=== PATIENT | male | born 1970 | race Caucasian/White ===

== ENCOUNTER 2019-04-27 09:38 | Emergency (ER) | payer BC ==
[2019-04-27] MEDS ORDERED: Sodium Chloride 0.9% 1000 ML 1,000 ML IV STA ×2 (09:42→10:34)
--- NOTE | 2019-04-27 09:56 | ERPHSYRPT ---
- History of Present Illness Time Seen by Provider: 04/27/19 09:53 Source: patient Exam Limitations: no limitations Patient Subjective Stated Complaint: pt here for high blood sugar this morning over 700 he had levamar 20 units, and total of 40 units of humalog this morning at last bs was 279. pt states he was out in heat this yesterday and that this morning he vomited at home but was able to eat breakfast Triage Nursing Assessment: pt alert, resp easy, skin w/d/p. moves all ext well, abst soft, he states he feels better. Physician History: 49-year-old white male states that he saw he had blurry vision this morning checked his blood sugar and was noted at home to have a blood sugar of 700. He states he had some vomiting this morning otherwise no distress. He states he took 20 units of NovoLog at 7:30 another at845. Is now feeling much better. He does state that he felt like he got too hot yesterday out in the sun. Past medical history includes diabetes past surgical history includes left total knee replacement and tonsils Social history positive tobacco use denies alcohol or illicit drug use Timing/Duration: today, improved Severity: moderate Modifying Factors: Improves With: medication (patient took 20 units of NovoLog at 7:30 AM and at 8:45 AM) Associated Symptoms: nausea, vomiting, other (blurry vision this morning felt like when he gets high blood sugars), No abdominal pain, No shortness of breath , No heartburn, No diaphoresis, No cough, No chills, No chest pain, No fever, No headaches, No loss of appetite, No malaise, No rash, No syncope, No seizure, No weakness Allergies/Adverse Reactions: No Known Drug Allergies Allergy (Verified 04/27/19 09:50) Home Medications: Avandia 1 ea DAILY 04/07/12 [History] Simvastatin 1 ea DAILY 04/07/12 [History] Tricor 1 ea DAILY 04/07/12 [History] Hx Tetanus, Diphtheria Vaccination/Date Given: No Hx Influenza Vaccination/Date Given: No Hx Pneumococcal Vaccination/Date Given: Yes Immunizations Up to Date: Yes - Review of Systems Constitutional: No Fever, No Chills Eyes: Vision Changes (blurry vision this morning improved), No Eye Pain, No Eye Redness, No Itchy, No Photophobia, No Tearing Ears, Nose, & Throat: No Symptoms Respiratory: No Cough, No Dyspnea Cardiac: No Chest Pain, No Edema, No Syncope Abdominal/Gastrointestinal: Nausea, Vomiting, No Abdominal Pain, No Diarrhea, No Constipation, No Hematemesis, No Hematochezia, No Melena, No Dysphagia, No Appetite Changes Genitourinary Symptoms: No Dysuria Musculoskeletal: No Back Pain, No Neck Pain Skin: No Rash Neurological: No Symptoms, Gait Changes, Headache, Irritability, Lethargy, Paralysis, Parasthesia, Seizure, Speech Changes, Tics, Tremors, Vertigo, Other, No Dizziness, No Focal Weakness, No Sensory Changes Psychological: No Symptoms Endocrine: No Symptoms All Other Systems: Reviewed and Negative - Past Medical History Pertinent Past Medical History: Yes Cardiac History: High Cholesterol Endocrine Medical History: Diabetes Type I - Past Surgical History Past Surgical History: Yes Other Surgical History: knee replacement - Social History Smoking Status: Current every day smoker Exposure to second hand smoke: Yes Drug Use: none Patient Lives Alone: No - Nursing Vital Signs Nursing Vital Signs: Initial Vital Signs Temperature 100.4 F 04/27/19 09:42 Pulse Rate 121 H 04/27/19 09:42 Respiratory Rate 18 04/27/19 09:42 Blood Pressure 152/90 04/27/19 09:42 O2 Sat by Pulse Oximetry 99 04/27/19 09:42 Pain Scale Pain Intensity 0 - Physical Exam General Appearance: no apparent distress, alert Eye Exam: PERRL/EOMI, eyes nml inspection Ears, Nose, Throat Exam: normal ENT inspection, TMs normal, pharynx normal, moist mucous membranes Neck Exam: normal inspection, non-tender, supple, full range of motion Respiratory Exam: normal breath sounds, lungs clear, No respiratory distress Cardiovascular Exam: regular rate/rhythm, normal heart sounds, normal peripheral pulses, capillary refill <2 sec Gastrointestinal/Abdomen Exam: soft, normal bowel sounds, No tenderness, No mass Back Exam: normal inspection, normal range of motion, No CVA tenderness, No vertebral tenderness Extremity Exam: normal inspection, normal range of motion, pelvis stable Neurologic Exam: alert, oriented x 3, cooperative, resource center teacher II-XII nml as tested, normal mood/affect, nml cerebellar function, nml station & gait, sensation nml, No motor deficits Skin Exam: normal color, warm, dry, No rash Lymphatic Exam: No adenopathy SpO2 Interpretation: normal (99%) SpO2: 99 - Course Nursing assessment & vital signs reviewed: Yes EKG Interpreted by Me: RATE (115 bpm), Sinus Tach, Other (EKG: Sinus tachycardia ,115 beats per minute,S AXISI/QIII pattern, no acute ST or T wave changes normal EKG) Ordered Tests: Active Orders 24 hr Category Date Time Status Accucheck STAT Care 04/27/19 11:17 Active EKG-ER Only STAT Care 04/27/19 09:42 Active IV Insertion STAT Care 04/27/19 09:42 Active Pulse Oximetry (ED) STAT Care 04/27/19 09:42 Active CBC W DIFF Stat Lab 04/27/19 09:45 Completed CMP Stat Lab 04/27/19 09:45 Completed Glucose,Critical Care Urgent Lab 04/27/19 09:42 Completed Manual Differential NC Stat Lab 04/27/19 09:45 Completed UA W/RFX UR CULTURE Stat Lab 04/27/19 10:40 Completed VENOUS BLOOD GAS Urgent Lab 04/27/19 09:42 Completed Medication Summary Generic Name Dose Route Start Last Admin Trade Name Freq PRN Reason Stop Dose Admin Sodium Chloride 1,000 mls @ 999 mls/hr 04/27/19 10:34 04/27/19 10:44 Sodium Chloride 0.9% 1000 Ml IV 04/27/19 11:34 999 mls/hr .Q1H1M STA Administration Discontinued Medications Generic Name Dose Route Start Last Admin Trade Name Freq PRN Reason Stop Dose Admin Sodium Chloride 1,000 mls @ 999 mls/hr 04/27/19 09:42 04/27/19 10:03 Sodium Chloride 0.9% 1000 Ml IV 04/27/19 10:42 999 mls/hr .Q1H1M STA Administration Sodium Chloride Confirm 04/27/19 10:02 Sodium Chloride 0.9% 1000 Ml Administered 04/27/19 10:03 Dose 1,000 mls @ ud .ROUTE .STK-MED ONE Sodium Chloride Confirm 04/27/19 10:41 Sodium Chloride 0.9% 1000 Ml Administered 04/27/19 10:42 Dose 1,000 mls @ ud .ROUTE .STK-MED ONE Lab/Rad Data: Laboratory Result Diagrams 04/27/19 09:45 04/27/19 09:45 Laboratory Results 04/27/19 04/27/19 04/27/19 Range/Units 10:40 09:45 09:45 WBC 12.8 H (4.0-10.5) K/mm3 RBC 4.24 (4.1-5.6) M/mm3 Hgb 12.2 L (12.5-18.0) gm/dl Hct 35.6 L (42-50) % MCV 84.0 (78-100) fl MCH 28.7 (26-32) pg MCHC 34.3 (32-36) g/dl RDW 12.6 (11.5-14.0) % Plt Count 277 (150-450) K/mm3 MPV 8.9 (6-9.5) fl pO2/FiO2 Ratio % VBG pH (7.32-7.42) VBG pCO2 at Pat Temp (42-55) mm/Hg VBG pO2 at Pat Temp (25-40) mm/Hg VBG HCO3 (22-28) meq/L VBG O2 Sat (Sony) (95-100) VBG Base Excess (-2.0-2.0) VBG Hemoglobin VBG Carboxyhemoglobin (0.0-6.9) % T HGB POC Potassium (3.5-5.1) Glucose 189 H (70-110) Sodium 136 L (137-145) mmol/L Potassium 4.0 (3.5-5.1) mmol/L Chloride 100 (98-107) mmol/L Carbon Dioxide 27 (22-30) mmol/L Anion Gap 12.7 (5-15) MEQ/L BUN 6 L (9-20) mg/dL Creatinine 0.60 L (0.66-1.25) mg/dL Estimated GFR > 60.0 ML/MIN Calcium 8.8 (8.4-10.2) mg/dL Total Bilirubin 0.70 (0.2-1.3) mg/dL AST 106 H (17-59) U/L ALT 89 H (0-50) U/L Alkaline Phosphatase 319 H (38-126) U/L Serum Total Protein 7.0 (6.3-8.2) g/dL Albumin 3.3 L (3.5-5.0) g/dL Urine Color YELLOW (YELLOW) Urine Appearance CLEAR (CLEAR) Urine pH 6.0 (5-6) Ur Specific [place] 1.028 (1.005-1.025) Urine Protein NEGATIVE (Negative) Urine Ketones NEGATIVE (NEGATIVE) Urine Blood SMALL (0-5) Karl/ul Urine Nitrite NEGATIVE (NEGATIVE) Urine Bilirubin NEGATIVE (NEGATIVE) Urine Urobilinogen 2 (0-1) mg/dL Ur Leukocyte Esterase NEGATIVE (NEGATIVE) Urine WBC (Auto) 0-2 (0-5) /HPF Urine RBC (Auto) NONE (0-2) /HPF U Epithel Cells (Auto) NONE (FEW) /HPF Urine Bacteria (Auto) NONE (NEGATIVE) /HPF Urine Mucus (Auto) SLIGHT (NEGATIVE) /HPF Urine Culture Reflexed NO (NO) Urine Glucose >=500 (NEGATIVE) mg/dL 04/27/19 Range/Units 09:42 WBC (4.0-10.5) K/mm3 RBC (4.1-5.6) M/mm3 Hgb (12.5-18.0) gm/dl Hct (42-50) % MCV (78-100) fl MCH (26-32) pg MCHC (32-36) g/dl RDW (11.5-14.0) % Plt Count (150-450) K/mm3 MPV (6-9.5) fl pO2/FiO2 Ratio 21.0 % VBG pH 7.37 (7.32-7.42) VBG pCO2 at Pat Temp 51 (42-55) mm/Hg VBG pO2 at Pat Temp 22 L (25-40) mm/Hg VBG HCO3 29.5 H* (22-28) meq/L VBG O2 Sat (Sony) 50.3 L (95-100) VBG Base Excess 3.3 H (-2.0-2.0) VBG Hemoglobin 12.3 VBG Carboxyhemoglobin 2.6 (0.0-6.9) % T HGB POC Potassium 4.0 (3.5-5.1) Glucose 197 H (70-110) Sodium (137-145) mmol/L Potassium (3.5-5.1) mmol/L Chloride (98-107) mmol/L Carbon Dioxide (22-30) mmol/L Anion Gap (5-15) MEQ/L BUN (9-20) mg/dL Creatinine (0.66-1.25) mg/dL Estimated GFR ML/MIN Calcium (8.4-10.2) mg/dL Total Bilirubin (0.2-1.3) mg/dL AST (17-59) U/L ALT (0-50) U/L Alkaline Phosphatase (38-126) U/L Serum Total Protein (6.3-8.2) g/dL Albumin (3.5-5.0) g/dL Urine Color (YELLOW) Urine Appearance (CLEAR) Urine pH (5-6) Ur Specific [place] (1.005-1.025) Urine Protein (Negative) Urine Ketones (NEGATIVE) Urine Blood (0-5) Karl/ul Urine Nitrite (NEGATIVE) Urine Bilirubin (NEGATIVE) Urine Urobilinogen (0-1) mg/dL Ur Leukocyte Esterase (NEGATIVE) Urine WBC (Auto) (0-5) /HPF Urine RBC (Auto) (0-2) /HPF U Epithel Cells (Auto) (FEW) /HPF Urine Bacteria (Auto) (NEGATIVE) /HPF Urine Mucus (Auto) (NEGATIVE) /HPF Urine Culture Reflexed (NO) Urine Glucose (NEGATIVE) mg/dL - Progress Progress: unchanged Progress Note: 04/27/19 11:20 Patient is in no distress at this time. Patient without ketones in his urine. EKG sinus tachycardia 1:15 beats per minute axisSI/QIII pattern, no acute ST or T wave changes. The patient received 2 L of normal saline. Will discharge. - Departure Departure Disposition: Home Clinical Impression: Hyperglycemia Condition: Fair Critical Care Time: No Referrals: GALILEO MUNOZ MD [Primary Care Provider] - Instructions: Hyperglycemia, Adult (DC) Additional Instructions: Return home. Plenty of fluids. Monitor your blood sugars carefully. Followup with your family DrPapo. Return for acute distress or for severe symptoms.
[2019-04-27 09:58] LABS: VBG BASE EXCESS 3.3 (-2.0-2.0); VBG CARBOXYHEMOGLOBIN 2.6 % T HGB (0.0-6.9); VBG HCO3- 29.5 meq/L (22-28); VBG HEMOGLOBIN 12.3; VBG O2 SATURATION 50.3 (95-100); VBG pH 7.37 (7.32-7.42)
[2019-04-27] MEDS ORDERED: Sodium Chloride 0.9% 1000 ML 1,000 ML ONE ×2 (10:02→10:41)
[2019-04-27 10:08] LABS: Hematocrit 35.6 % (42-50); Hemoglobin 12.2 gm/dl (12.5-18.0); Mean Corpuscular Hgb Concent. 34.3 g/dl (32-36); Mean Platelet Volume 8.9 fl (6-9.5); Platelet Count 277 K/mm3 (150-450); Red Blood Count 4.24 M/mm3 (4.1-5.6); Red Cell Distribution Width 12.6 % (11.5-14.0); White Blood Count 12.8 K/mm3 (4.0-10.5)
[2019-04-27 10:13] LABS: Mean Corpuscular Hemoglobin 28.7 pg (26-32)
[2019-04-27 10:16] LABS: ALBUMIN 3.3 g/dL (3.5-5.0); ALKALINE PHOSPHATASE 319 U/L (38-126); ANION GAP 12.7 MEQ/L (5-15); BLOOD UREA NITROGEN 6 mg/dL (9-20); CHLORIDE 100 mmol/L (98-107); Calcium 8.8 mg/dL (8.4-10.2); Carbon Dioxide 27 mmol/L (22-30); Glucose 189 mg/dL (74-106); SGOT/AST 106 U/L (17-59); SGPT/ALT 89 U/L (0-50); SODIUM 136 mmol/L (137-145)
[2019-04-27 11:12] LABS: Appearance CLEAR (CLEAR); Bilirubin NEGATIVE (NEGATIVE); Blood SMALL Ery/ul (0-5); Glucose >=500 mg/dL (NEGATIVE); Ketones NEGATIVE (NEGATIVE); Leukocyte Esterase NEGATIVE (NEGATIVE); Mucus SLIGHT /HPF (NEGATIVE); Nitrite NEGATIVE (NEGATIVE); Protein,Urine Dip NEGATIVE (Negative); Specific Gravity 1.028 (1.005-1.025); Urobilinogen 2 mg/dL (0-1); WBC 0-2 /HPF (0-5)
[2019-04-27 11:26] VITALS: BP 152/97; PULSE 111; O2SAT 100
[2019-04-27 12:37] LABS: ATYPICAL LYMPHS 6 %; BAND 3 % (0.0-2.0); Monocyte 3 % (0.0-12.0); Neutrophils 22 % (36.-66.); Platelet Estimate NORMAL (NORMAL); Total Cells Counted 100
[2019-04-27 12:38] LABS: Lymphocytes 66 % (24-44)
== END 2019-04-27 11:33 | disposition home or self-care (01) ==
LOC: ED 09:38
DX: R73.9 Hyperglycemia, unspecified (principal); Z79.899 Other long term (current) drug therapy; Z79.4 Long term (current) use of insulin
CPT/HCPCS: 36415; 80053; 81001; 82805; 82947; 85025; 93005; 94760; 96360; 96361; 99284

== ENCOUNTER 2021-10-03 20:14 | Emergency (ER) | payer BC, MEDICAID ==
[2021-10-03] MEDS ORDERED: Sodium Chloride 0.9% 1000 ML 1,000 ML ONE ×3 (20:17→21:04)
[2021-10-03] MEDS ORDERED: D50W 50 ml Abboject IV ONE ×2 (20:28→21:10)
[2021-10-03 20:31] LABS: A-aADO2 630; ABG HEMOGLOBIN 10.6; ABG POTASSIUM 3.6 (3.5-5.1); ARTERIAL BLD GAS O2 SATURATION 77.3 % (95-100); ARTERIAL BLD GAS TIDAL VOLUME 500 cc; ARTERIAL BLOOD GAS BASE EXCESS 1.6 (-2.0-2.0); ARTERIAL BLOOD GAS FIO2 100 %; ARTERIAL BLOOD GAS PCO2 33 mmHg (35-45); ARTERIAL BLOOD GAS PO2 42 mmHg (75-100); ARTERIAL BLOOD GAS VENT MODE A/C; ARTERIAL BLOOD GAS pH 7.48 (7.35-7.45); CARBOXYHEMOGLOBIN 1.3 % THgb (0.0-6.9); HCO3- 24.6 (22-28); HGB O2 SAT 75.9 g/dF (94-100); Methhemoglobin 0.4 % (1.4-1.5)
[2021-10-03] MEDS ORDERED: Zosyn INJ 4.5 GM in Sodium Chloride 100ML MINI-BAG PLUS 100 ML IV ONE (20:31)
[2021-10-03 20:32] LABS: ABG SITE RIGHT RADIAL; ALLEN TEST OK? YES
[2021-10-03 20:32] LABS: Hematocrit 33.1 % (42-50); Mean Cell Volume 79.8 fl (78-100); Mean Corpuscular Hemoglobin 26.5 pg (26-32); Mean Corpuscular Hgb Concent. 33.2 g/dl (32-36); Mean Platelet Volume 10.4 fl (7.5-11.0); Platelet Count 283 K/mm3 (150-450); Red Blood Count 4.15 M/mm3 (4.1-5.6); Red Cell Distribution Width 13.6 % (11.5-14.0); White Blood Count 12.6 K/mm3 (4.0-10.5)
[2021-10-03] MEDS ORDERED: Sodium Chloride 100ML MINI-BAG PLUS 100 ML IV ONE (20:33)
[2021-10-03] MEDS ORDERED: Zosyn INJ IV ONE (20:33)
[2021-10-03 20:37] LABS: A-aADO2 290; ABG POTASSIUM 3.4 (3.5-5.1); ARTERIAL BLD GAS TIDAL VOLUME 500 cc; ARTERIAL BLOOD GAS BASE EXCESS -1.5 (-2.0-2.0); ARTERIAL BLOOD GAS FIO2 100 %; ARTERIAL BLOOD GAS PCO2 29 mmHg (35-45); ARTERIAL BLOOD GAS PO2 387 mmHg (75-100); ARTERIAL BLOOD GAS VENT MODE A/C; ARTERIAL BLOOD GAS pH 7.47 (7.35-7.45); HCO3- 21.1 (22-28); HGB O2 SAT 98.2 g/dF (94-100); Methhemoglobin 0.9 % (1.4-1.5)
[2021-10-03 20:38] LABS: ABG SITE RIGHT RADIAL; ALLEN TEST OK? YES
[2021-10-03 20:41] LABS: Appearance SLIGHTLY CLOUDY (CLEAR); Bilirubin NEGATIVE (NEGATIVE); Blood NEGATIVE Ery/ul (0-5); Glucose >=500 mg/dL (NEGATIVE); Hyaline Casts 0-2 /LPF (0-2); Ketones TRACE (NEGATIVE); Leukocyte Esterase NEGATIVE (NEGATIVE); Mucus SLIGHT /HPF (NEGATIVE); Nitrite NEGATIVE (NEGATIVE); Protein,Urine Dip 30 (Negative); RBC 0-2 /HPF (0-2); Specific Gravity 1.018 (1.005-1.025); Urobilinogen NEGATIVE mg/dL (0-1); WBC 0-2 /HPF (0-5)
[2021-10-03 20:46] LABS: ALBUMIN 2.6 g/dL (3.5-5.0); ALKALINE PHOSPHATASE 115 U/L (38-126); ANION GAP 12.6 MEQ/L (5-15); BLOOD UREA NITROGEN 43 mg/dL (9-20); CHLORIDE 92 mmol/L (98-107); Calcium 8.7 mg/dL (8.4-10.2); Carbon Dioxide 25 mmol/L (22-30); Creatinine 1 1.32 mg/dL (0.66-1.25); EST GLOMERULAR FILTRATION RATE > 60.0 ML/MIN; Glucose 67 mg/dL (74-106); Potassium 3.9 mmol/L (3.5-5.1); SGOT/AST 37 U/L (17-59); SGPT/ALT 16 U/L (0-50); SODIUM 126 mmol/L (137-145); Total Protein 5.6 g/dL (6.3-8.2)
[2021-10-03 21:03] LABS: INR 1.34 (0.8-3.0); PROTIME 15.8 SECONDS (9.4-12.5)
[2021-10-03 21:06] LABS: PTT 25.7 SECONDS (25.1-36.5)
[2021-10-03] MEDS ORDERED: VANCOMYCIN 1 GRAM/200 ML BAG 1 GM/200 ML PIGGYBACK IV ONE ×2 (21:08)
[2021-10-03] MEDS ORDERED: Sodium Chloride 0.9% 1000 ML 1,000 ML IV STA ×3 (21:09→21:10)
[2021-10-03] MEDS ORDERED: LEVOPHED 4 MG/4 ML 4,000 MCG in Dextrose 5%/Water IV Soln. 500 ML 500 ML IV PRN (21:11)
[2021-10-03 21:38] VITALS: O2SAT 100
--- NOTE | 2021-10-03 21:38 | ERPHSYRPT ---
- History of Present Illness Source: EMS Exam Limitations: clinical condition Patient Subjective Stated Complaint: EMS states pt was unresponsive with agonal breathing at time of arrival Triage Nursing Assessment: pt came into the er via ambulance; pt is unresponsive on the ventilator; EMS states pt was RSI in the field; pt received 20mg of etomidate, 90mg of rocuronium, 100mcg of fentanyl, 5mg versed in the field; tube in place at time of arrival; clear lung sounds in all lobes; no crepitus present; pt is pale cool to the touch; f/c placed at time of arrival; urine yellow and clear; hypoactive bowel sounds in all quads; strong kellen radial pulses; strong kellen pedal pulses; distant apical pulse; ulcer present to left foot; dorsal left foot has ulcer that is wheeping; planter of the left foot ulcer present measuring 2 mm x 1.6 mm and 0.9 mm; pt has calus to left heel; pupils 2 mm and nonresponsive; hypotensive 53/36; febrile 100.4; blood glucose in field was 429, blood glucose at time of arrival was 79; pt was given 1 amp of D5W; pt received 1L bolus in route Physician History: 51 yo wm arrived per EMS intubated. Pt obtunded w agonal respirations on floor when EMS arrived. Pt given 20mg Etomidate/90mg Rocuronium for RSI and post i ntubation given 100umg IV Fentanyl/5mg IV Versed for sedation post-intubation. Pt arrived to ER unresponsive/hypotensive/sats in 80's. IV access R antecubital upon arrival and 18G IV started R forearm per ER nursing. Pt connected to ventilator AC500/R25/100% O2/Peep4. CXR done w ETT in R mainstem so pulled out 2cm w increase in sats. Rojo placed per nursing wo comps and with good urine output. Pupils unresponsive and no purposeful movement noted. Pt assumed septic due to obvious L foot infection. Hypotension treated w NS bolus 1L x3 and Levophed drip. Timing/Duration: other (Unknown) Allergies/Adverse Reactions: No Known Drug Allergies Allergy (Verified 10/03/21 20:21) Home Medications: Aspirin EC 81 mg [Ecotrin 81 mg] 81 mg PO DAILY 10/03/21 [History] Atorvastatin Calcium [Lipitor] 80 mg PO DAILY 10/03/21 [History] Escitalopram Oxalate [Lexapro] 5 mg PO DAILY 10/03/21 [History] Gabapentin 300 mg [Neurontin 300 mg] 300 mg PO TID 10/03/21 [History] Insulin Aspart 25 unit SQ ACHS 10/03/21 [History] Insulin Detemir [Levemir] 25 unit SQ BID 10/03/21 [History] Insulin Lispro [Humalog] 1 unit SQ UD 10/03/21 [History] Metoprolol Succinate 25 mg Xl* [Toprol-Xl 25MG Tablets] 25 mg PO BID 10/03/21 [History] Tramadol HCl 50 mg [Ultram 50 mg] 50 mg PO Q6H PRN PRN 10/03/21 [History] lisinopriL [Lisinopril] 20 mg PO DAILY 10/03/21 [History] Hx Tetanus, Diphtheria Vaccination/Date Given: No Hx Influenza Vaccination/Date Given: No Hx Pneumococcal Vaccination/Date Given: Yes Travel Risk - International Travel Have you traveled outside of the country in past 3 weeks: No - Coronavirus Screening Are you exhibiting any of the following symptoms?: No Close contact with a COVID-19 positive Pt in past 14-21 Days: No - Vaccine Status Have you recieved a Covid-19 vaccination: No (unknown) Obstetrics Gyn: Unknown - Vaccination Dates Dates if Unknown: unknown - Review of Systems All Other Systems: Unable due to condition - Past Medical History Pertinent Past Medical History: Yes Cardiac History: High Cholesterol, Hypertension, Myocardial Infarction ([place]) Endocrine Medical History: Diabetes Type I - Past Surgical History Past Surgical History: Yes Other Surgical History: knee replacement - Social History Smoking Status: Current every day smoker Exposure to second hand smoke: Yes Drug Use: none Patient Lives Alone: No Significant Family History: no pertinent family hx - Nursing Vital Signs Nursing Vital Signs: Initial Vital Signs Temperature 100.4 F 10/03/21 20:14 Pulse Rate 90 10/03/21 20:14 Respiratory Rate 24 10/03/21 20:14 Blood Pressure 53/36 10/03/21 20:14 O2 Sat by Pulse Oximetry 86 L 10/03/21 20:14 Pain Scale Pain Intensity 0 Hypoxic/Hypotensive/Febrile - Physical Exam General Appearance: severe distress (Intubated/Hypotensive/Hypoxic) Eye Exam: other (Pupils unresponsive B) Neck Exam: normal inspection Respiratory Exam: other (Intubated/occ wheeze B) Cardiovascular Exam: tachycardia, No murmur Gastrointestinal/Abdomen Exam: soft, normal bowel sounds Male Genitalia Exam: normal genitalia Extremity Exam: other (L foot w diabetic foot ulcer/edematous/markedly erythematous) Neurologic Exam: other (Pt sedated wo purposeful movement) Skin Exam: No rash Lymphatic Exam: No adenopathy SpO2 Interpretation: normal (Pt intubated/sats normalized when tube pulled back) SpO2: 100 O2 Delivery: Ventilator - Course Nursing assessment & vital signs reviewed: Yes EKG Interpreted by Me: RATE (Sinus tach/Rate 104/Old anterior [place]/Old inferior [place]/Prolonged QTc/Nonspecif ST-Twave changes) - CT Exams Head CT Interpretation: Discussed w/radiologist (L anterior parietal ischemia vs infarct wo hemorrhage or mass) Chest CT Interpretation: Discussed w/radiologist (RLL PE) Ordered Tests: Active Orders 24 hr Category Date Time Status Piece Worker STAT Care 10/03/21 20:16 Completed Catheter-[place] Rojo STAT Care 10/03/21 20:16 Completed EKG-ER Only STAT Care 10/03/21 20:16 Completed IV Insertion STAT Care 10/03/21 20:16 Completed Pulse Oximetry (ED) STAT Care 10/03/21 20:16 Completed CHEST 1 VIEW (PORTABLE) Stat Exams 10/03/21 20:16 Taken CHEST WITH CONTRAST [CT] Stat Exams 10/03/21 21:02 Taken HEAD WITHOUT CONTRAST [CT] Stat Exams 10/03/21 20:34 Taken ABG [ARTERIAL BLOOD GASES] Stat Lab 10/03/21 20:34 Completed ABG [ARTERIAL BLOOD GASES] Urgent Lab 10/03/21 20:30 Completed BLOOD CULTURE Stat Lab 10/03/21 20:21 Received CBC W DIFF Stat Lab 10/03/21 20:16 Completed CMP Stat Lab 10/03/21 20:16 Completed CULTURE,URINE Stat Lab 10/03/21 20:32 Received CULTURE,WOUND Stat Lab 10/03/21 21:53 Ordered CULTURE,WOUND Stat Lab 10/03/21 22:10 Ordered Lactic Acid Stat Lab 10/03/21 20:16 Completed Manual Differential NC Stat Lab 10/03/21 20:16 Completed POCT GLUCOSE Stat Lab 10/03/21 21:07 Completed PROTIME WITH INR Stat Lab 10/03/21 20:16 Completed PTT Stat Lab 10/03/21 20:16 Completed TROPONIN Q3H Lab 10/03/21 20:30 Completed UA W/RFX UR CULTURE Stat Lab 10/03/21 20:32 Completed Urine Triage Profile Stat Lab 10/03/21 22:03 Completed Medication Summary Discontinued Medications Generic Name Dose Route Start Last Admin Trade Name Anusha PRN Reason Stop Dose Admin Dextrose Confirm 10/03/21 20:28 Dextrose 50%-Water 50 Ml Abboject Administered 10/03/21 20:29 Dose 50 ml IV .STK-MED ONE Dextrose 50 ml 10/03/21 21:10 10/03/21 20:30 Dextrose 50%-Water 50 Ml Abboject IV 10/03/21 21:11 50 ml STAT ONE Administration Enoxaparin Sodium 75 mg 10/03/21 22:19 10/03/21 22:42 Enoxaparin Sodium 80 Mg/0.8 Ml Syringe SQ 10/03/21 22:20 Not Given 1XONLY ONE Fentanyl Citrate 50 mcg 10/03/21 21:59 10/03/21 22:05 Fentanyl Citrate 100 Mcg/2 Ml* Vial IV 10/03/21 22:00 50 mcg STAT ONE Administration Fentanyl Citrate Confirm 10/03/21 22:04 Fentanyl Citrate 100 Mcg/2 Ml* Vial Administered 10/03/21 22:05 Dose 100 mcg .ROUTE .STK-MED ONE Fentanyl Citrate 50 mcg 10/03/21 23:05 10/03/21 23:07 Fentanyl Citrate 100 Mcg/2 Ml* Vial IV 10/03/21 23:06 50 mcg STAT ONE Administration Fentanyl Citrate Confirm 10/03/21 23:06 Fentanyl Citrate 100 Mcg/2 Ml* Vial Administered 10/03/21 23:07 Dose 100 mcg .ROUTE .STK-MED ONE Heparin Sodium (Beef Lung) Confirm 10/03/21 22:37 Heparin 5000 Unit/0.5 Ml Syringe Administered 10/03/21 22:38 Dose 5,000 unit .ROUTE .STK-MED ONE Heparin Sodium (Beef Lung) 5,000 unit 10/03/21 22:43 10/03/21 22:46 Heparin 5000 Unit/0.5 Ml Syringe IV 10/03/21 22:44 5,000 unit STAT ONE Administration Sodium Chloride Confirm 10/03/21 20:17 Sodium Chloride 0.9% 1000 Ml Administered 10/03/21 20:18 Dose 1,000 mls @ ud .ROUTE .STK-MED ONE Sodium Chloride Confirm 10/03/21 20:19 Sodium Chloride 0.9% 1000 Ml Administered 10/03/21 20:20 Dose 1,000 mls @ ud .ROUTE .STK-MED ONE Piperacillin Sod/Tazobactam 100 mls @ 200 mls/hr 10/03/21 20:31 10/03/21 20:40 Sod 4.5 gm/ Sodium Chloride IV 10/03/21 21:00 200 mls/hr STAT ONE Administration Sodium Chloride Confirm 10/03/21 20:33 Sodium Chloride 100ml Mini-Bag Plus Administered 10/03/21 20:34 Dose 100 mls @ ud IV .STK-MED ONE Sodium Chloride Confirm 10/03/21 21:04 Sodium Chloride 0.9% 1000 Ml Administered 10/03/21 21:05 Dose 1,000 mls @ ud .ROUTE .STK-MED ONE Vancomycin HCl 1 gm in 200 mls @ 125 mls/hr 10/03/21 21:08 10/03/21 21:10 Vancomycin 1 Gram/200 Ml Bag IV 10/03/21 22:43 125 mls/hr STAT ONE 125 mls/hr Administration Sodium Chloride 1,000 mls @ 999 mls/hr 10/03/21 21:09 10/03/21 22:08 Sodium Chloride 0.9% 1000 Ml IV 10/03/21 22:09 Infused .Q1H1M STA Infusion Sodium Chloride 1,000 mls @ 999 mls/hr 10/03/21 21:10 10/03/21 21:42 Sodium Chloride 0.9% 1000 Ml IV 10/03/21 22:10 Infused .Q1H1M STA Infusion Sodium Chloride 1,000 mls @ 999 mls/hr 10/03/21 21:10 10/03/21 22:07 Sodium Chloride 0.9% 1000 Ml IV 10/03/21 22:10 Infused .Q1H1M STA Infusion Vancomycin HCl Confirm 10/03/21 21:08 Vancomycin 1 Gram/200 Ml Bag Administered 10/03/21 21:09 Dose 1 gm in 200 mls @ ud IV .STK-MED ONE Norepinephrine 4,000 mcg/ 504 mls @ 37.8 mls/hr 10/03/21 21:11 10/03/21 22:03 Dextrose IV 11/02/21 21:10 5 mcg/min .[id number] PRN 37.8 mls/hr SEVERE HYPOTENSION Titration Protocol 5 MCG/MIN Heparin Sodium/Dextrose Confirm 10/03/21 22:37 Heparin 25,000 Units/D5w 250ml Premix Administered 10/03/21 22:38 Dose 25,000 units in 250 mls @ ud IV .STK-MED ONE Heparin Sodium/Dextrose 25,000 units in 250 mls @ 10 mls/hr 10/03/21 23:00 10/03/21 22:45 Heparin 25,000 Units/D5w 250ml Premix IV 11/02/21 22:59 10 mls/hr .Q24H CLEMENTE 10 mls/hr Administration Lorazepam 1 mg 10/03/21 23:06 10/03/21 23:07 Lorazepam 2 Mg/1 Ml 2 Mg Vial IV 10/03/21 23:07 1 mg STAT ONE Administration Lorazepam Confirm 10/03/21 23:06 Lorazepam 2 Mg/1 Ml 2 Mg Vial Administered 10/03/21 23:07 Dose 2 mg .ROUTE .STK-MED ONE Piperacillin Sod/Tazobactam Sod Confirm 10/03/21 20:33 Piperacillin/Tazobactam Sodium 4.5 Gm Vial Administered 10/03/21 20:34 Dose 4.5 gm IV .STK-MED ONE Lab/Rad Data: Laboratory Result Diagrams 10/03/21 20:16 10/03/21 20:16 Laboratory Results 10/03/21 10/03/21 10/03/21 Range/Units 22:03 22:00 21:07 WBC (4.0-10.5) K/mm3 RBC (4.1-5.6) M/mm3 Hgb (12.5-18.0) gm/dl Hct (42-50) % MCV (78-100) fl MCH (26-32) pg MCHC (32-36) g/dl RDW (11.5-14.0) % Plt Count (150-450) K/mm3 MPV (7.5-11.0) fl PT (9.4-12.5) SECONDS INR (0.8-3.0) APTT (25.1-36.5) SECONDS Puncture Site pCO2 (35-45) mmHg pO2 (75-100) mmHg Base Excess (-2.0-2.0) O2 Saturation (94-100) g/dF ABG pH (7.35-7.45) ABG HCO3 (22-28) ABG O2 Sat (Measured) (95-100) % Aric Test A-a Gradient a/A Ratio Hemoglobin Carboxyhemoglobin (0.0-6.9) % THgb Methemoglobin (1.4-1.5) % Temperature C POC O2 Flow Rate % Vent Mode Tidal Volume cc PEEP cmH2O Sodium (137-145) mmol/L Potassium (3.5-5.1) mmol/L Chloride (98-107) mmol/L Carbon Dioxide (22-30) mmol/L Anion Gap (5-15) MEQ/L BUN (9-20) mg/dL Creatinine (0.66-1.25) mg/dL Estimated GFR ML/MIN Glucose (74-106) mg/dL POC Glucometer 169 H (74 to 106) mg/dL Lactic Acid (0.4-2.0) Calcium (8.4-10.2) mg/dL Total Bilirubin (0.2-1.3) mg/dL AST (17-59) U/L ALT (0-50) U/L Alkaline Phosphatase (38-126) U/L Troponin I (0.000-0.034) ng/mL Serum Total Protein (6.3-8.2) g/dL Albumin (3.5-5.0) g/dL Urine Color (YELLOW) Urine Appearance (CLEAR) Urine pH (5-6) Ur Specific [place] (1.005-1.025) Urine Protein (Negative) Urine Ketones (NEGATIVE) Urine Blood (0-5) Karl/ul Urine Nitrite (NEGATIVE) Urine Bilirubin (NEGATIVE) Urine Urobilinogen (0-1) mg/dL Ur Leukocyte Esterase (NEGATIVE) Urine WBC (Auto) (0-5) /HPF Urine RBC (Auto) (0-2) /HPF U Hyaline Cast (Auto) (0-2) /LPF Urine Mucus (Auto) (NEGATIVE) /HPF Urine Culture Reflexed (NO) Urine Glucose (NEGATIVE) mg/dL Urine Opiates Level POSITIVE (NEGATIVE) Ur Methadone NEGATIVE (NEGATIVE) Urine Barbiturates NEGATIVE (NEGATIVE) Ur Phencyclidine (PCP) NEGATIVE (NEGATIVE) Urine Amphetamine NEGATIVE (NEGATIVE) U Benzodiazepine Level NEGATIVE (NEGATIVE) Urine Cocaine NEGATIVE (NEGATIVE) Urine Marijuana (THC) NEGATIVE (NEGATIVE) Influenza Type A Ag NEGATIVE (NEGATIVE) Influenza Type B Ag NEGATIVE (NEGATIVE) RSV (PCR) NEGATIVE (Negative) SARS-CoV-2 (PCR) NEGATIVE (NEGATIVE) 10/03/21 10/03/21 10/03/21 Range/Units 20:34 20:30 20:30 WBC (4.0-10.5) K/mm3 RBC (4.1-5.6) M/mm3 Hgb (12.5-18.0) gm/dl Hct (42-50) % MCV (78-100) fl MCH (26-32) pg MCHC (32-36) g/dl RDW (11.5-14.0) % Plt Count (150-450) K/mm3 MPV (7.5-11.0) fl PT (9.4-12.5) SECONDS INR (0.8-3.0) APTT (25.1-36.5) SECONDS Puncture Site RIGHT RADIAL RIGHT RADIAL pCO2 29 L 33 L (35-45) mmHg pO2 387 H* 42 L* (75-100) mmHg Base Excess -1.5 1.6 (-2.0-2.0) O2 Saturation 98.2 75.9 L (94-100) g/dF ABG pH 7.47 H 7.48 H (7.35-7.45) ABG HCO3 21.1 L 24.6 (22-28) ABG O2 Sat (Measured) 100.0 77.3 L (95-100) % Aric Test YES YES A-a Gradient 290 630 a/A Ratio 0.57 0.06 Hemoglobin 10.0 10.6 Carboxyhemoglobin 1.0 1.3 (0.0-6.9) % THgb Methemoglobin 0.9 L 0.4 L (1.4-1.5) % Temperature 37.0 37.0 C POC O2 Flow Rate 100 100 % Vent Mode A/C A/C Tidal Volume 500 500 cc PEEP 10.0 10.0 cmH2O Sodium (137-145) mmol/L Potassium 3.4 L 3.6 (3.5-5.1) mmol/L Chloride (98-107) mmol/L Carbon Dioxide (22-30) mmol/L Anion Gap (5-15) MEQ/L BUN (9-20) mg/dL Creatinine (0.66-1.25) mg/dL Estimated GFR ML/MIN Glucose (74-106) mg/dL POC Glucometer (74 to 106) mg/dL Lactic Acid (0.4-2.0) Calcium (8.4-10.2) mg/dL Total Bilirubin (0.2-1.3) mg/dL AST (17-59) U/L ALT (0-50) U/L Alkaline Phosphatase (38-126) U/L Troponin I 0.017 (0.000-0.034) ng/mL Serum Total Protein (6.3-8.2) g/dL Albumin (3.5-5.0) g/dL Urine Color (YELLOW) Urine Appearance (CLEAR) Urine pH (5-6) Ur Specific [place] (1.005-1.025) Urine Protein (Negative) Urine Ketones (NEGATIVE) Urine Blood (0-5) Karl/ul Urine Nitrite (NEGATIVE) Urine Bilirubin (NEGATIVE) Urine Urobilinogen (0-1) mg/dL Ur Leukocyte Esterase (NEGATIVE) Urine WBC (Auto) (0-5) /HPF Urine RBC (Auto) (0-2) /HPF U Hyaline Cast (Auto) (0-2) /LPF Urine Mucus (Auto) (NEGATIVE) /HPF Urine Culture Reflexed (NO) Urine Glucose (NEGATIVE) mg/dL Urine Opiates Level (NEGATIVE) Ur Methadone (NEGATIVE) Urine Barbiturates (NEGATIVE) Ur Phencyclidine (PCP) (NEGATIVE) Urine Amphetamine (NEGATIVE) U Benzodiazepine Level (NEGATIVE) Urine Cocaine (NEGATIVE) Urine Marijuana (THC) (NEGATIVE) Influenza Type A Ag (NEGATIVE) Influenza Type B Ag (NEGATIVE) RSV (PCR) (Negative) SARS-CoV-2 (PCR) (NEGATIVE) 10/03/21 10/03/21 10/03/21 Range/Units 20:16 20:16 20:16 WBC (4.0-10.5) K/mm3 RBC (4.1-5.6) M/mm3 Hgb (12.5-18.0) gm/dl Hct (42-50) % MCV (78-100) fl MCH (26-32) pg MCHC (32-36) g/dl RDW (11.5-14.0) % Plt Count (150-450) K/mm3 MPV (7.5-11.0) fl PT 15.8 H (9.4-12.5) SECONDS INR 1.34 (0.8-3.0) APTT 25.7 (25.1-36.5) SECONDS Puncture Site pCO2 (35-45) mmHg pO2 (75-100) mmHg Base Excess (-2.0-2.0) O2 Saturation (94-100) g/dF ABG pH (7.35-7.45) ABG HCO3 (22-28) ABG O2 Sat (Measured) (95-100) % Aric Test A-a Gradient a/A Ratio Hemoglobin Carboxyhemoglobin (0.0-6.9) % THgb Methemoglobin (1.4-1.5) % Temperature C POC O2 Flow Rate % Vent Mode Tidal Volume cc PEEP cmH2O Sodium 126 L (137-145) mmol/L Potassium 3.9 (3.5-5.1) mmol/L Chloride 92 L (98-107) mmol/L Carbon Dioxide 25 (22-30) mmol/L Anion Gap 12.6 (5-15) MEQ/L BUN 43 H (9-20) mg/dL Creatinine 1.32 H (0.66-1.25) mg/dL Estimated GFR > 60.0 ML/MIN Glucose 67 L (74-106) mg/dL POC Glucometer (74 to 106) mg/dL Lactic Acid 1.9 (0.4-2.0) Calcium 8.7 (8.4-10.2) mg/dL Total Bilirubin 0.60 (0.2-1.3) mg/dL AST 37 (17-59) U/L ALT 16 (0-50) U/L Alkaline Phosphatase 115 (38-126) U/L Troponin I (0.000-0.034) ng/mL Serum Total Protein 5.6 L (6.3-8.2) g/dL Albumin 2.6 L (3.5-5.0) g/dL Urine Color (YELLOW) Urine Appearance (CLEAR) Urine pH (5-6) Ur Specific [place] (1.005-1.025) Urine Protein (Negative) Urine Ketones (NEGATIVE) Urine Blood (0-5) Karl/ul Urine Nitrite (NEGATIVE) Urine Bilirubin (NEGATIVE) Urine Urobilinogen (0-1) mg/dL Ur Leukocyte Esterase (NEGATIVE) Urine WBC (Auto) (0-5) /HPF Urine RBC (Auto) (0-2) /HPF U Hyaline Cast (Auto) (0-2) /LPF Urine Mucus (Auto) (NEGATIVE) /HPF Urine Culture Reflexed (NO) Urine Glucose (NEGATIVE) mg/dL Urine Opiates Level (NEGATIVE) Ur Methadone (NEGATIVE) Urine Barbiturates (NEGATIVE) Ur Phencyclidine (PCP) (NEGATIVE) Urine Amphetamine (NEGATIVE) U Benzodiazepine Level (NEGATIVE) Urine Cocaine (NEGATIVE) Urine Marijuana (THC) (NEGATIVE) Influenza Type A Ag (NEGATIVE) Influenza Type B Ag (NEGATIVE) RSV (PCR) (Negative) SARS-CoV-2 (PCR) (NEGATIVE) 10/03/21 10/03/21 Range/Units 20:16 20:14 WBC 12.6 H (4.0-10.5) K/mm3 RBC 4.15 (4.1-5.6) M/mm3 Hgb 11.0 L (12.5-18.0) gm/dl Hct 33.1 L (42-50) % MCV 79.8 (78-100) fl MCH 26.5 (26-32) pg MCHC 33.2 (32-36) g/dl RDW 13.6 (11.5-14.0) % Plt Count 283 (150-450) K/mm3 MPV 10.4 (7.5-11.0) fl PT (9.4-12.5) SECONDS INR (0.8-3.0) APTT (25.1-36.5) SECONDS Puncture Site pCO2 (35-45) mmHg pO2 (75-100) mmHg Base Excess (-2.0-2.0) O2 Saturation (94-100) g/dF ABG pH (7.35-7.45) ABG HCO3 (22-28) ABG O2 Sat (Measured) (95-100) % Aric Test A-a Gradient a/A Ratio Hemoglobin Carboxyhemoglobin (0.0-6.9) % THgb Methemoglobin (1.4-1.5) % Temperature C POC O2 Flow Rate % Vent Mode Tidal Volume cc PEEP cmH2O Sodium (137-145) mmol/L Potassium (3.5-5.1) mmol/L Chloride (98-107) mmol/L Carbon Dioxide (22-30) mmol/L Anion Gap (5-15) MEQ/L BUN (9-20) mg/dL Creatinine (0.66-1.25) mg/dL Estimated GFR ML/MIN Glucose (74-106) mg/dL POC Glucometer (74 to 106) mg/dL Lactic Acid (0.4-2.0) Calcium (8.4-10.2) mg/dL Total Bilirubin (0.2-1.3) mg/dL AST (17-59) U/L ALT (0-50) U/L Alkaline Phosphatase (38-126) U/L Troponin I (0.000-0.034) ng/mL Serum Total Protein (6.3-8.2) g/dL Albumin (3.5-5.0) g/dL Urine Color YELLOW (YELLOW) Urine Appearance SLIGHTLY CLOUDY (CLEAR) Urine pH 5.0 (5-6) Ur Specific [place] 1.018 (1.005-1.025) Urine Protein 30 (Negative) Urine Ketones TRACE (NEGATIVE) Urine Blood NEGATIVE (0-5) Karl/ul Urine Nitrite NEGATIVE (NEGATIVE) Urine Bilirubin NEGATIVE (NEGATIVE) Urine Urobilinogen NEGATIVE (0-1) mg/dL Ur Leukocyte Esterase NEGATIVE (NEGATIVE) Urine WBC (Auto) 0-2 (0-5) /HPF Urine RBC (Auto) 0-2 (0-2) /HPF U Hyaline Cast (Auto) 0-2 (0-2) /LPF Urine Mucus (Auto) SLIGHT (NEGATIVE) /HPF Urine Culture Reflexed ORDERED SEPARATELY (NO) Urine Glucose >=500 (NEGATIVE) mg/dL Urine Opiates Level (NEGATIVE) Ur Methadone (NEGATIVE) Urine Barbiturates (NEGATIVE) Ur Phencyclidine (PCP) (NEGATIVE) Urine Amphetamine (NEGATIVE) U Benzodiazepine Level (NEGATIVE) Urine Cocaine (NEGATIVE) Urine Marijuana (THC) (NEGATIVE) Influenza Type A Ag (NEGATIVE) Influenza Type B Ag (NEGATIVE) RSV (PCR) (Negative) SARS-CoV-2 (PCR) (NEGATIVE) - Progress Progress: improved Progress Note: 10/03/21 22:[address] [facility] 3000ML Levaphed drip started at 5ug/mn and titrated to effect Zosyn 4.5gm IV Vancomycin 1gm IV Heparin 5000u bolus/1000u/hr Dr. Barnett called and stated that pt had nonoccluding RLL PE and L anterior parietal infarct vs ischemia wo hemorrhage or mass effect. Stated that most likely old. - Departure Departure Disposition: Transfer Clinical Impression: Sepsis, Pulmonary embolus, right, Diabetic foot infection, Respiratory failure Condition: Stable Critical Care Time: Yes Critical Care Time(excluding separately billable procedures): Critical 75-104 mins Referrals: GALILEO MUNOZ MD [Primary Care Provider] - Follow up/PCP as directed
[2021-10-03] MEDS ORDERED: SUBLIMAZE 100 MCG/2 ML IV ONE ×2 (21:59→23:05)
[2021-10-03] MEDS ORDERED: SUBLIMAZE 100 MCG/2 ML ONE ×2 (22:04→23:06)
[2021-10-03] MEDS ORDERED: ENOXAPARIN SODIUM SQ ONE (22:19)
[2021-10-03] MEDS ORDERED: Heparin 5000 UNITS/0.5 ML (HIGH RISK MED) ONE (22:37)
[2021-10-03] MEDS ORDERED: Heparin 25,000 units/D5W 250ML PREMIX 25,000 UNITS/250 ML BAG IV ONE (22:37)
[2021-10-03 22:40] LABS: INFLUENZA A NEGATIVE (NEGATIVE); INFLUENZA B NEGATIVE (NEGATIVE); RESPIRATORY SYNCTIAL VIRUS NEGATIVE (Negative); SARS-CoV-2 Xpert Express NEGATIVE (NEGATIVE)
[2021-10-03] MEDS ORDERED: Heparin 5000 UNITS/0.5 ML (HIGH RISK MED) IV ONE (22:43)
[2021-10-03 22:45] LABS: Amphetamine,Urine NEGATIVE (NEGATIVE); Barbiturate,Urine NEGATIVE (NEGATIVE); Benzodiazepine,Urine NEGATIVE (NEGATIVE); Cocaine,Urine NEGATIVE (NEGATIVE); Methadone,Urine NEGATIVE (NEGATIVE); Opiate,Urine POSITIVE (NEGATIVE); PCP,Urine NEGATIVE (NEGATIVE); THC,Urine NEGATIVE (NEGATIVE)
[2021-10-03] MEDS ORDERED: Heparin 25,000 units/D5W 250ML PREMIX 25,000 UNITS/250 ML BAG IV SCH (23:00)
[2021-10-03 23:04] VITALS: BP 97/66; PULSE 65
[2021-10-03] MEDS ORDERED: Ativan 2 MG/1 ML VIAL IV ONE (23:06)
[2021-10-03] MEDS ORDERED: Ativan 2 MG/1 ML VIAL ONE (23:06)
[2021-10-04 01:02] LABS: BAND 1 % (0.0-2.0); Burr Cells 1+; Hypochromia 1+; Lymphocytes 12 % (24-44); Microcytosis 1+; Monocyte 7 % (0.0-12.0); Neutrophils 80 % (36.-66.); Platelet Estimate NORMAL (NORMAL); Total Cells Counted 100
--- NOTE | 2021-10-04 09:23 | XRAY ---
Indication: Endotracheal tube placement. Comparison: None Portable chest demonstrates endotracheal tube tip 1 cm above mark. Lungs inflated and clear. Heart not enlarged with coronary stent graft. Bony thorax intact.
--- NOTE | 2021-10-04 09:23 | XRAY ---
Indication: Respiratory arrest. Acute mental status change. Multiple contiguous axial images obtained through the head without contrast. Comparison: None Age-appropriate global atrophy and bilateral basal ganglia lacunar infarcts. Anterior left parietal lobe demonstrates 5.5 x 3.8 cm wedge-shaped focus of hypoattenuation without mass effect favoring ischemia/infarct of uncertain chronicity. No acute hemorrhage or abnormal extra-axial fluid collection. Fourth ventricle is midline without hydrocephalus. Remaining coleman-white matter differentiation is preserved. Bony calvarium intact. Mild mucosal thickening of both ethmoid sinuses. Mastoid air cells are clear. Opacification of the naso-oropharynx either mucous/fluid versus blood. Impression: 1. Anterior left parietal lobe wedge-shaped hypoattenuation favors ischemia/infarct of uncertain chronicity. 2. No acute intracranial hemorrhage. 3. Incidental atrophy, bilateral basal ganglia lacunar infarcts, and paranasal sinus disease. 4. Mucous/fluid versus blood in the naso-oropharynx. Comment: Telephone report was given to ordering clinician, Dr. Harrison at 2212 hrs. on October 03, 2021.
--- NOTE | 2021-10-04 09:27 | XRAY ---
Indication: Respiratory arrest. Acute mental status change. Sepsis. Multiple contiguous axial images obtained through the chest using 100 cc Isovue 370 contrast and PE protocol. Comparison: None There is good opacification of the pulmonary arteries to include the lobar and segmental branches. Medial segmental branch of the right lower lobe demonstrates small nonoccluding pulmonary emboli. Heart not enlarged. Aorta is normal in course and caliber. No pathologic mediastinal/hilar lymphadenopathy. Endotracheal tube tip is approximately 1 cm in the right mainstem bronchus. Lungs demonstrate mild right and moderate left base dependent atelectasis. No suspicious pulmonary mass, infiltrate, effusion, or pneumothorax. Limited upper abdomen demonstrates mild diffuse fatty liver. Impression: 1. Right lower lobe nonoccluding pulmonary embolus. 2. Endotracheal tube tip in right mainstem bronchus. Recommend withdrawal approximately 3 cm. 3. Bibasilar dependent atelectasis and fatty liver. Comment: Telephone report was given to ordering clinician, Dr. Harrison at 2212 hrs. on October 03, 2021.
== END 2021-10-03 23:20 | disposition short-term general hospital (02) ==
LOC: ED 20:14
DX: A41.9 Sepsis, unspecified organism (principal); E10.621 Type 1 diabetes mellitus with foot ulcer; L97.529 Non-pressure chronic ulcer of other part of left foot with unspecified severity; L08.9 Local infection of the skin and subcutaneous tissue, unspecified; I26.99 Other pulmonary embolism without acute cor pulmonale; J96.00 Acute respiratory failure, unspecified whether with hypoxia or hypercapnia; Z79.4 Long term (current) use of insulin; E78.5 Hyperlipidemia, unspecified; I10 Essential (primary) hypertension; Z79.891 Long term (current) use of opiate analgesic; Z72.0 Tobacco use
CPT/HCPCS: 0241U; 36000; 36415; 36600; 51702; 70450; 71045; 71260; 80053; 80307; 81001; 82375; 82803; 82947; 83605; 84484; 85025; 85610; 85730; 87040; 87086; 93005; 93041; 94002; 94760; 94799; 96360; 96361; 96365; 96367; 96374; 96375; 96376; 99285; 99291; 99292; 87070; J1644; J2060; J2543; J3010; J3370